=== PATIENT | female | born 1950 | race Caucasian/White ===

== ENCOUNTER 2016-08-07 18:52 | Inpatient (IN) ==
[2016-08-07 19:57] LABS: URINE MICRO REVIEW NEEDED? NO; URINE SOURCE CLEAN CATCH
[2016-08-07 20:01] LABS: BILIRUBIN URINE NEGATIVE (NEGATIVE); BLOOD URINE NEGATIVE (NEGATIVE); COLOR YELLOW; GLUCOSE URINE NEGATIVE (NEGATIVE); LEUKOCYTES URINE SMALL (NEGATIVE); NITRITE URINE NEGATIVE (NEGATIVE); PH URINE 7.5; PROTEIN URINE 70 mg/dL (NEGATIVE); TURBIDITY URINE CLEAR (CLEAR); UROBILINOGEN URINE NORMAL (NORMAL)
[2016-08-07 20:03] LABS: UR EPITHELIAL CELLS >10 /HPF (<10); URINE BACTERIA NEGATIVE /HPF; URINE CULTURE NEEDED? YES; URINE RBC <10 /HPF (<10); URINE WBC <10 /HPF (<10)
[2016-08-07 20:17] LABS: MANUAL DIFF NEEDED? NO
[2016-08-07 20:23] LABS: BASO% 0.1 % (0.0-0.8); EOS# 0.07 X1000 (0.0-0.7); EOS% 0.9 % (0.0-10.0); HEMOGLOBIN 12.4 g/dL (12.0-16.0); IMM GRAN# 0.03 X1000 (0.0-0.04); IMM GRAN% 0.4 % (0.0-0.5); LYMPH# 1.26 X1000 (1.2-3.4); LYMPH% 15.8 % (20.5-51.1); MCH 29.7 PG (27-31); MCHC 33.5 g/dL (33-37); MCV 88.7 FL (81-99); MONO# 0.58 X1000 (0.11-0.59); MONO% 7.3 % (1.7-9.3); MPV 8.8 FL (7.4-10.4); NEUT% 75.5 % (42.2-75.2); PLT 196 X1000 (130-400); RBC 4.17 XMIL (4.2-5.4)
[2016-08-07 20:46] LABS: AGAP 15; ALBUMIN 4.6 g/dL (3.5-5.0); ALKALINE PHOSPHATASE 111 U/L (32-104); AMYLASE 69 U/L (20-200); BUN 5 mg/dL (8-22); CALCIUM 7.7 mg/dL (8.8-10.2); CHLORIDE 93 mmol/L (98-107); COSMO 272; GOT 27 U/L (10-30); GPT 29 U/L (10-36); LIPASE 43 U/L (13-60); POTASSIUM 3.5 mmol/L (3.5-5.1); SODIUM 137 mmol/L (136-145); TCO2 29 mmol/L (25-35); TOTAL BILIRUBIN 0.46 mg/dL (0.20-1.00); TOTAL PROTEIN 7.7 g/dL (6.3-8.3)
[2016-08-07] MEDS ORDERED: MORPHINE IV ONE ×2 (20:58→21:50)
[2016-08-07] MEDS ORDERED: ZOFRAN IV ONE (20:58)
[2016-08-07] MEDS ORDERED: OFIRMEV 1000 MG/ISOTONIC SOLN 1,000 MG/100 ML BOTTLE ONE (21:11)
[2016-08-07] MEDS ORDERED: OFIRMEV 1000 MG/ISOTONIC SOLN 1,000 MG/100 ML BOTTLE IV ONE (21:20)
[2016-08-07] MEDS ORDERED: NS 1,000 ML IV ONE (22:22)
[2016-08-07] MEDS ORDERED: PROTONIX IV ONE (22:49)
[2016-08-07] MEDS ORDERED: PHENERGAN IV ONE (22:49)
[2016-08-07] MEDS ORDERED: SODIUM CHLORIDE 0.9% INJ ONE ×2 (22:49)
[2016-08-08] MEDS ORDERED: TYLENOL PO PRN (00:29)
[2016-08-08] MEDS: NS 1,000 ML IV SCH ×3 (01:33→16:43)
[2016-08-08] MEDS ORDERED: SODIUM CHLORIDE 0.9% INJ PRN (02:04)
[2016-08-08] MEDS: DILAUDID IV PRN ×6 (02:15→22:24)
[2016-08-08 02:34] LABS: INR 1.06; PROTIME 11.2 Seconds (9.2-11.7); PTT 29.2 Seconds (22.0-36.0)
[2016-08-08 02:37] LABS: AMYLASE 61 U/L (20-200); HDL 47 mg/dL (45-65); LDL 57 mg/dL; LIPASE 41 U/L (13-60); TRIGLYCERIDES 204 mg/dL (35-135); VLDL 41 mg/dL
--- NOTE | 2016-08-08 04:59 | HISTORY AND PHYSICAL ---
PRIMARY CARE PROVIDER: Henry Napoles MD DATE AND TIME OF HISTORY AND PHYSICAL: 08/07/2016 at 2200 hours. CHIEF COMPLAINT: Nausea, vomiting and abdominal pain. HISTORY OF PRESENT ILLNESS: Ms. Napoles is a 66-year-old, female who presented to the ER [facility] with complaints of nausea and vomiting as well as abdominal pain, that started approximately 2 weeks ago. The patient states that she initially had nausea, vomiting and diarrhea as well as abdominal pain and was admitted to [facility] for 1 week. She reports that while she was admitted there, that she had a CT scan, though did not undergo an EGD or colonoscopy. She was discharged 2 days ago but was actually seen in the ER yesterday for continued nausea and vomiting, was given some fluids and discharged home again. Dr. Napoles recommended the patient come to [facility] for further evaluation by a possible planer offbearer. The patient states that for the initial first couple of days since her symptoms started, she did have diarrhea, but this has subsided at this time. She reports that she has not had a bowel movement in 4 days, though has not been able to hold down any solid foods for approximately 2 weeks. The patient states everything that she eats comes right back up. She reports that her emesis at this time is a white frothy consistency. She denies any hematochezia, melena or hematemesis. The patient complains of abdominal pain as well as lower back pain. She denies any dysuria or urinary frequency. She denies body aches or chills, though did report that she had a fever yesterday. She also does report feeling dizzy and lightheaded at times as well as feeling fatigued, though she denies any headache, chest pain or shortness of breath. Upon further evaluation in the ER, the patient was found initially to be tachycardic upon arrival with a heart rate of 140, respirations 20, blood pressure 135/95, and oxygen saturation of 96% on room air. She is afebrile at this time. White blood cell count is within normal limits at 7.9. Amylase and lipases were within normal limits as well. The patient does have pain and tenderness noted in epigastric area as well as some periumbilical pain and tenderness as well. We have ordered a CT abdomen and pelvis with contrast and are awaiting those results this time. We will admit the patient for her abdominal pain, nausea, vomiting, as well as fluid volume depletion. REVIEW OF SYSTEMS: A 12-point review of systems was conducted with the patient and all were negative except for pertinent positives mentioned above in the HPI. PAST MEDICAL HISTORY: 1. History of right breast cancer. 2. Hypertension. 3. Bipolar disorder. PAST SURGICAL HISTORY: 1. Hysterectomy. 2. Hernia repair at age 2. 3. Right breast surgery for breast cancer as well as approximately 4 lymph nodes removed as well. SOCIAL HISTORY: Patient is a former smoker. She smoked 2 packs a day for approximately 20 years ago though quit smoking 15 years ago. She denies any alcohol or illicit drug use. FAMILY HISTORY: Positive for alcoholism, drug addiction, diabetes mellitus, heart disease, stroke. Her mother had a history of multiple blood clots and there is a family history of breast cancer as well. ALLERGIES: Patient reports allergies to Aleve, Lyrica, adhesive tape and morphine, though the patient did receive 2 doses of morphine in the ER with no reported adverse reactions. HOME MEDICATIONS: Trazodone 100 mg p.o. at bedtime, Seroquel 300 mg p.o. at bedtime, amlodipine 10 mg p.o. daily, Tylenol with Codeine #4 tablet 1 p.o. q.6 hours p.r.n. for pain, dicyclomine 20 mg p.o. t.i.d., diazepam 10 mg p.o. b.i.d. p.r.n., Flexeril 10 mg p.o. t.i.d. DIAGNOSTIC DATA/LABORATORY RESULTS: White blood cell count 7.9, hemoglobin 12.4 , hematocrit 37, platelet count 196,000. PT 11.2, INR 1.06. PTT 29.2. Sodium 137, potassium 3.5, chloride 93, bicarbonate 29, BUN 5 creatinine 0.8, glucose 124, calcium 7.7, total bilirubin 0.46, AST 27, ALT 29, alkaline phosphatase is 111. Amylase 69, lipase 43. Urinalysis was obtained via clean catch, was positive for protein, small leukocytes, though had greater than 10 epithelial cells. It was negative for glucose, ketones, blood, nitrites or bacteria. We have ordered EKGs, though it is unable for viewing at this time. PENDING DIAGNOSTIC STUDIES: CT of the abdomen and pelvis with contrast, lipid profile and urine culture. PHYSICAL EXAMINATION: VITAL SIGNS: Temperature 98.8 degrees, heart rate 117, respirations 18, blood pressure 152/90, oxygen saturation is 98% on room air. GENERAL: Ms. Napoles is a pleasant 66-year-old female who is resting in the ER stretcher. She was experiencing some abdominal pain upon my evaluation, and appeared to be in some discomfort, though was awake, alert and able to answer all questions appropriately. HEENT: Head is atraumatic, normocephalic. Pupils are equal, round, reactive to light, were 3 mm bilaterally and brisk. Subconjunctivae are pink. Oral mucosa was moist. Oropharynx is clear. NECK: Supple. Trachea midline. No carotid bruits noted upon auscultation bilaterally. No JVD noted. CARDIOVASCULAR: Patient has normal S1, S2. No murmurs, gallops, or rubs appreciated with a slightly tachycardic rate that is regular. PULMONARY: Patient has symmetrical chest expansion bilaterally. Lung sounds were clear to auscultation in bilateral full marquez. ABDOMEN: Soft. Does appear to be slightly distended, though the patient does have a protuberant abdomen noted. Bowel sounds were present in all 4 quadrants. The patient did have tenderness noted upon palpation in the epigastric area as well as a periumbilical. She did have some slight rebound tenderness noted upon palpation. EXTREMITIES: No cyanosis, clubbing, or edema noted. Pulse, motor and sensory were intact in all extremities. Pedal pulses were 3+ bilaterally. Capillary refill is less than 3. INTEGUMENTARY: The patient's skin is pink, warm, dry and intact. NEUROLOGICAL: Patient is alert and oriented to person, place, time, and situation. Cranial nerves 2-12 are grossly intact. ASSESSMENT AND PLAN: 1. Fluid volume depletion. This is likely secondary to the patient's persistent reported nausea and vomiting. We will give her a 1 L normal saline bolus in the ER. Continue her fluids at 150 mL/h. 2. Nausea, vomiting. We have placed p.r.n. orders for Zofran and Phenergan as needed. 3. Abdominal pain. As previously mentioned, we have placed an order for a CT of the abdomen and pelvis with contrast and are awaiting those results at this time. Also, we have placed a consult with Dr. Renee with Gastroenterology, and will await her evaluation and further recommendations as well. 4. Tachycardia. This is likely secondary to the patient's fluid volume depletion. Since being given fluids in the ER, the patient's heart rate has improved. It was initially 140 and has come now down with the last reading of 112. We will continue to follow. As well , the patient has been placed on telemetry for close monitoring. 5. Hypertension. We will continue amlodipine 10 mg p.o. daily. 6. Bipolar. We will continue her Seroquel. 7. Patient will be placed on the medical floor with telemetry. She will have vital signs q.6 hours. We will do strict intake and output. She will be NPO at this time until evaluated by Gastroenterology. DVT prophylaxis was provided with SCDs. GI prophylaxis was provided with Protonix 40 mg IV q.24 hours. We have also placed p.r.n. orders for pain medication for the patient's abdominal pain as well. We will repeat a CBC and BMP in the morning. Further orders and recommendations pending hospital course, diagnostic studies and physician evaluation. Dictated by MAXWELL Garcia for Nigel Hooper MD cc: Nigel Hooper MD MTDD
--- NOTE | 2016-08-08 05:17 | EKG Report ---
Test Performed on : 08/07/2016 10:49:57 PM Test Reason : Tachycardia Blood Pressure : / mmHG Vent. Rate : 121 BPM Atrial Rate : 121 BPM P-R Int : 172 ms QRS Dur : 082 ms QT Int : 350 ms P-R-T Axes : 072 -40 085 degrees QTc Int : 497 ms Sinus tachycardia. Left axis deviation Abnormal ECG No previous ECGs available Unconfirmed Result
[2016-08-08 06:00] LABS: MANUAL DIFF NEEDED? NO
[2016-08-08 06:13] LABS: BASO% 0.5 % (0.0-0.8); IMM GRAN# 0.03 X1000 (0.0-0.04); IMM GRAN% 0.5 % (0.0-0.5)
[2016-08-08 06:40] LABS: AGAP 16; BUN 4 mg/dL (8-22); CHLORIDE 99 mmol/L (98-107); COSMO 278; EOS# 0.17 X1000 (0.0-0.7); EOS% 2.6 % (0.0-10.0); HEMATOCRIT 34.1 % (37.0-47.0); HEMOGLOBIN 11.4 g/dL (12.0-16.0); LYMPH# 1.89 X1000 (1.2-3.4); LYMPH% 28.9 % (20.5-51.1); MAGNESIUM 1.1 mg/dL (1.5-2.7); MCH 30.2 PG (27-31); MCHC 33.4 g/dL (33-37); MCV 90.5 FL (81-99); MONO# 0.57 X1000 (0.11-0.59); MONO% 8.7 % (1.7-9.3); MPV 8.9 FL (7.4-10.4); NEUT% 58.8 % (42.2-75.2); PLT 178 X1000 (130-400); POTASSIUM 3.6 mmol/L (3.5-5.1); RBC 3.77 XMIL (4.2-5.4); SODIUM 141 mmol/L (136-145); TCO2 26 mmol/L (25-35)
[2016-08-08] MEDS ORDERED: CALCIUM GLUCONATE 1 GM in NS 50 ML IV ONE (06:55)
[2016-08-08] MEDS ORDERED: MAGNESIUM SULFATE 1 GM/D5W 1 GM/100 ML IVPB IV ONE (07:07)
[2016-08-08] MEDS: NORVASC PO SCH (09:38)
--- NOTE | 2016-08-08 10:47 | Diag Imaging Result Doc PS360 ---
EXAM: ABDOMEN/PELVIS W/CONTRAST INDICATION: persistent nausea vomiting, weight loss COMPARISON: None. FINDINGS: There is trace scarring versus atelectasis at the right lung base. The spleen is at least mildly prominent measuring up to 15.2 cm in craniocaudal length. There are a few shotty nonspecific borderline prominent periportal lymph nodes. The largest node is on image 35 of series 6 and measures up to 1.9 cm in the long axis and 0.9 cm in the short axis. There is suggestion of subtle thickening of the adrenal glands, more prominent on the left. This is statistically most likely adrenal hyperplasia or underlying adrenal adenomas. The appendix is normal. There are scattered sigmoid colonic diverticula but there is no evidence of diverticulitis. There is no sign of bowel obstruction. There has been a previous hysterectomy. No focal inflammatory changes, free abdominal gas, or free fluid is appreciated. The remainder of the solid viscera of the abdomen and pelvis and the remainder of the GI tract are essentially unremarkable. There is aortoiliac atherosclerotic calcification but there is no evidence of aneurysm. There are degenerative changes involving the spine and there is a T12 mild compression deformity, likely chronic. IMPRESSION: 1.Mildly prominent spleen. 2.A few shotty borderline prominent periportal lymph nodes that are nonspecific. 3.Other incidental/nonacute findings detailed above but no definite acute pathology. Electronically signed by Daniel Orozco 08/08/2016 10:45 AM
--- NOTE | 2016-08-08 11:49 | PROGRESS NOTE ---
DATE: 08/08/2016 SUBJECTIVE: The patient complains of having a lot of abdominal pain. She wants more pain medications she has complaints of having some nausea but no vomiting. The patient has stated that her antinausea medication is helping her greatly. She was able to get the contrast down without any difficulty. OBJECTIVE: Vital signs: Blood pressure is 134/69, pulse of 91, respirations 20, temperature 98.4 degrees, saturation of 98% on 2 L nasal cannula. General appearance: Well developed, well- nourished white female in moderate distress due to pain. HEENT: Anicteric. Clear conjunctivae. Neck: Supple. No JVD. No bruit. Cardiovascular: S1, S2. Normal rate and rhythm. No murmur, rubs, or gallops. Pulmonary: Clear to auscultation bilaterally. GI: Soft, nontender, nondistended. Normoactive bowel sounds musculoskeletal. No clubbing, cyanosis, or edema. LABORATORY: White count 6.54, hemoglobin 11.4, hematocrit of 34.1, platelets of 178,000. Chemistry: Sodium 141, potassium 3.6, chloride 99, bicarb 26, BUN 4, creatinine 0.7, glucose of 104. Calcium 7.0 and magnesium 1.1. ASSESSMENT AND PLAN: This is a 66-year-old white female admitted to the hospital for abdominal discomfort and nausea, unable to eat and drink because of nausea and vomiting. 1. Abdominal discomfort and pain, consistent with gastroenteritis has been going on for several weeks now. Gastroenterology was consulted. We will continue with supportive care with IV fluid and antiemetic medications and pain control. 2. Hypocalcemia. We will recheck pot calcium again tomorrow after we will replete her calcium today. We will also check her parathyroid thyroid hormone. 3. Hypomagnesemia. We will replete her magnesium and her electrolyte abnormality is probably secondary to nausea, vomiting, diarrhea with poor p.o. intake. The CAT scan just showed mild prominent spleen. Otherwise, no acute findings. 4. Hypertension. We will continue Norvasc. 5. Bipolar. We will continue Seroquel. 6. We will continue to follow her culture and lab work.
[2016-08-08] MEDS: PHENERGAN IV PRN (18:26)
[2016-08-08] MEDS: PROTONIX IV SCH (20:16)
[2016-08-08] MEDS: SEROQUEL PO SCH (20:16)
[2016-08-08] MEDS: DESYREL PO SCH (20:16)
[2016-08-09] MEDS: PROTONIX IV SCH ×2 (01:10→18:32)
[2016-08-09] MEDS: PHENERGAN IV PRN ×3 (02:44→14:41)
[2016-08-09] MEDS: DILAUDID IV PRN ×6 (02:44→22:05)
[2016-08-09] MEDS: NS 1,000 ML IV SCH (02:46)
[2016-08-09 07:08] LABS: IRON SATURATION 21 %; TIBC 179 ug/dL; TOTAL IRON 37 ug/dL (49-151); UNBOUND IRON 142 ug/dL (112-346)
[2016-08-09 07:39] LABS: FERRITIN 566 ng/mL (13-150)
[2016-08-09] MEDS: NORVASC PO SCH (09:24)
[2016-08-09 11:54] LABS: MANUAL DIFF NEEDED? NO
[2016-08-09] MEDS ORDERED: NORCO-5 PO PRN (11:56)
[2016-08-09 11:57] LABS: BASO% 0.4 % (0.0-0.8); EOS# 0.15 X1000 (0.0-0.7); EOS% 2.8 % (0.0-10.0); HEMATOCRIT 29.4 % (37.0-47.0); HEMOGLOBIN 9.7 g/dL (12.0-16.0); IMM GRAN# 0.03 X1000 (0.0-0.04); IMM GRAN% 0.6 % (0.0-0.5); LYMPH# 1.07 X1000 (1.2-3.4); LYMPH% 19.8 % (20.5-51.1); MCH 29.8 PG (27-31); MCV 90.5 FL (81-99); MONO% 9.2 % (1.7-9.3); MPV 9.1 FL (7.4-10.4); NEUT% 67.2 % (42.2-75.2); PLT 152 X1000 (130-400); RBC 3.25 XMIL (4.2-5.4)
[2016-08-09] MEDS: ZOFRAN IV PRN ×3 (12:43→21:35)
[2016-08-09 12:52] LABS: AGAP 19; BUN 5 mg/dL (8-22); CHLORIDE 98 mmol/L (98-107); COSMO 274; POTASSIUM 4.2 mmol/L (3.5-5.1); SODIUM 138 mmol/L (136-145); TCO2 21 mmol/L (25-35)
--- NOTE | 2016-08-09 13:42 | PROGRESS NOTE ---
DATE: 08/09/2016 SUBJECTIVE: The patient has myriad complaints, mostly in her nausea and vomiting, unable to eat, and abdominal pain. She wants more pain medication. No fever, no chills overnight. No diarrhea since admissions. OBJECTIVE: Blood pressure 112/47, pulse 103, respiration 18, temperature 98.8 degrees, saturation 100% on 2 L nasal cannula. General Appearance: Well-developed, well-nourished white female in moderate distress due to pain and multiple complaints. HEENT: Anicteric. Clear conjunctivae. Neck supple. No JVD. No bruit. Cardiovascular: S1, S2. Normal rate and rhythm. No murmur, rubs, or gallops. Pulmonary: Clear to auscultation bilaterally. GI soft, nontender, nondistended. Normoactive bowel sounds. Musculoskeletal: No clubbing, cyanosis, or edema. Her lab works has not been reported this morning. She had an abdominal ultrasound this morning and HIDA scan this morning. Her liver function tests have been all within normal limits. ASSESSMENT AND PLAN: A 66-year-old admitted to the hospital for abdominal pain. 1. Abdominal pain, nonspecific. CAT scan is normal. The patient an ultrasound HIDA scan. The report is still pending. We will start the patient on a clear liquid diet since she complained of being hungry. Traffic Circuit Engineer is following. No diarrhea. We will add [place] 5 on top of her Dilaudid to get her pain under control. We will also add Zofran p.r.n. for nausea. 2. History of bipolar disorder. We will continue on Seroquel. 3. Insomnia. Continue trazodone. 4. Deep vein thrombosis prophylaxis. Put the patient on Lovenox. 5. CODE STATUS: The patient is a FULL CODE.
--- NOTE | 2016-08-09 14:27 | Diag Imaging Result Doc PS360 ---
EXAM: US GB < RUQ (LIMITED) INDICATION: n/v, diarrhea, abd pain COMPARISON: None. FINDINGS: No gallstones or sludge is identified. There is mild gallbladder wall thickening measuring up to 4 mm. There is no pericholecystic fluid. The common bile duct is normal in diameter. Sonographic Flood's sign was reported to be positive by the light technician. The liver is grossly unremarkable. Portal venous flow is hepatopedal. The visualized pancreas is unremarkable. The aorta and IVC are grossly unremarkable. The right kidney is grossly unremarkable. IMPRESSION: No gallstones or sludge is identified. However, there is perhaps minimal gallbladder wall thickening and a reported positive sonographic Flood's sign. Electronically signed by Daniel Orozco 08/09/2016 2:25 PM
--- NOTE | 2016-08-09 17:12 | PROGRESS NOTE ---
DATE: 08/09/2016 SUBJECTIVE: The patient states that she is feeling better today. She continues to have nausea and right upper quadrant/epigastric pain. She remains afraid to eat and has requested additional pain medications for her abdominal pain. On abdominal ultrasound, she was found to have a thickened gallbladder with a positive sonographic Flood sign. Her clinical history and ultrasound findings are consistent with cholecystitis. She is anxious to confirm the diagnosis. PHYSICAL EXAM: Vital signs: On exam her blood pressure is 112/70, pulse of 113 , respiration 18, temperature of 97.8. Abdominal Exam: Was deferred. She pressed on her abdomen during our conversation and noted pain in the epigastrium and right upper quadrant. Her abdomen is soft. OBJECTIVE DATA: Reveals a hemoglobin of 9.7 with hematocrit of 29.4 and a white count of 5.41. She has 152,000 platelets. Her ionized calcium is 1.03. Sodium 138, potassium 4.2, chloride 93, CO2 21, BUN 5, creatinine 0.7 with a glucose of 110. Calcium is 8.0. Her iron is 37 with ferritin of 566. Her B12 is 1156 with a folic acid of 8.2. IMPRESSION: 1. Nausea with vomiting. 2. Diarrhea. 3. Abdominal pain. 4. Hypocalcemia. 5. Folic acid deficiency. 6. Elevated alkaline phosphatase. 7. Iron-deficiency anemia. 8. Ultrasound with a positive sonographic Flood sign. RECOMMENDATION: 1. The nausea and vomiting persists and her ultrasound suggests cholecystitis. Therefore, I will obtain a HIDA scan on Thursday to confirm the diagnosis. Pending the results of that study, she will need a surgical consult. I will consider Bentyl if the study is negative. 2. The patient has a progressive anemia. I will plan to perform an EGD on Thursday in light of her drop in her hemoglobin. 3. Begin folic acid 1 mg p.o. daily. 4. I would advance her diet to a clear liquid diet as tolerated. 5. The patient reported diarrhea upon admission. However, she has had no bowel movement since admission. Therefore, I recommend administering a Dulcolax suppository as she appears to have opioid induced constipation. In the past, she reports alternating constipation and loose stools at home. She may have underlying IBS. I will consider treatment pending the HIDA scan results. 6. I will defer to the primary team for correction of her hypocalcemia based on serum calcium levels and ionized calcium. 7. Additional recommendations to follow based on her clinical course. cc: MD Dr. Graham Holden [place] MTDD
--- NOTE | 2016-08-09 17:57 | CONSULTATION ---
DATE OF CONSULTATION: 08/09/2016 PRIMARY CARE PROVIDER: Dr. Henry Napoles M.D. REFERRING PHYSICIAN: Dr. Nigel Stark M.D. INDICATION FOR CONSULTATION: 1. Nausea with vomiting. 2. Diarrhea. 3. Abdominal pain. HISTORY OF PRESENT ILLNESS: The patient is a 66-year-old, white female, who presented to the emergency room. She reports a 3-week history of nausea with vomiting, diarrhea , and abdominal pain. She spent 1 week in [facility] with the same concerns. She said multiple tests were done but no cause was found. She was discharged to home. At home, she continued to have nausea with vomiting, abdominal pain, and diarrhea. She was advised to present to [facility] Room for evaluation by a tile layer helper. In the emergency room, she was found to be tachycardic and orthostatic. She was noted to have epigastric and right upper quadrant tenderness on exam. Her CT scan was remarkable for prominent spleen, periportal lymph nodes that were slightly enlarged but no other acute findings. However, she had persistent nausea and vomiting in the emergency room and was admitted for further management. Of note, the patient states that she underwent a colonoscopy approximately 10 years ago and has a history of colon polyps. She has not had an endoscopic evaluation with this recent episode of nausea with vomiting, abdominal pain, and diarrhea. PAST MEDICAL HISTORY: 1. Right breast cancer status post resection and lymph node removal. 2. Hypertension. 3. Bipolar disorder. 4. Colon polyps. 5. Central morbid obesity. 6. Former smoker. She previously smoked 2 packs per day for 15 years but stopped smoking 20 years ago. PAST SURGICAL HISTORY: 1. Hysterectomy. 2. Hernia repair at [age] years of age. 3. Right breast surgery for breast cancer and lymph node dissection. SOCIAL HISTORY: The patient smoked 2 packs per day for 15 years. She states that she stopped smoking 20 years ago. However, she reports to a colleague that she smoked 2 packs per day for 20 years and stopped smoking 15 years ago. She previously drank beer on a casual basis. She reports minimal to no alcohol intake for over 10 years. FAMILY HISTORY: Positive for alcoholism, drug addiction, diabetes, heart disease, and stroke. Her mother had a history of multiple blood clots and there are family members who have had breast cancer. She denies a history of colon cancer or colon polyps. MEDICATION ALLERGIES: 1. Aleve. 2. Lyrica. 3. Adhesive tape. 4. Morphine. HOME MEDICATIONS: 1. Trazodone. 2. Seroquel. 3. Amlodipine. 4. Tylenol with codeine #4. 5. Dicyclomine. 6. Diazepam. 7. Flexeril. REVIEW OF SYSTEMS: Remarkable for nausea and vomiting. She describes her emesis as clear and watery. She has avoided solid food for over 3 weeks. She states that when she is NPO, she has minimal pain. She notes the pain begins within 10 minutes of ingesting solid food. She has felt lightheaded and dizzy due to dehydration. She complains of abdominal pain and is requesting pain medications. On exam, she is in no acute distress. Her blood pressure is 137/80, pulse of 107, respiration 20, temperature of 97.9 degrees.HEENT: Negative for jaundice. Her conjunctivae are pink. Her oropharyngeal mucosal membrane is moist. Pulmonary: Lungs are clear to auscultation with normal expiratory effort. Cardiovascular: Reveals a resting tachycardia with a regular rhythm. There are no murmurs, gallops or rubs. Abdominal Exam: Reveals hypoactive bowel sounds. The abdomen is soft, but tender in the epigastrium, right upper quadrant and periumbilical area. There is no rebound or guarding. There is central adiposity. Extremities: Bilaterally are negative for cyanosis, clubbing, or edema. OBJECTIVE DATA: Reveals a hemoglobin of 11.4 with hematocrit of 34.1, and a white count of 6.54. She has 178,000 platelets. Sodium is 141, potassium 3.6, chloride 99, CO2 26, BUN 4, creatinine 0.7 with a glucose of 104. Calcium is 7.0, magnesium 1.1. Albumin is 3.9. IMPRESSION: 1. Nausea with vomiting. 2. Diarrhea. 3. Abdominal pain in the epigastrium, right upper quadrant and periumbilical area. 4. Hypomagnesemia. 5. Anemia. 6. Volume depletion. 7. Central morbid obesity. RECOMMENDATION: 1. Because of the nausea with vomiting and episodic pain in the right upper quadrant, I recommend an abdominal ultrasound and a HIDA scan. Her symptoms sound consistent with biliary colic. 2. Depending on the results of her ultrasound and HIDA scan, I will tentatively place her on the schedule for an EGD on Thursday. 3. She was noted to have hypomagnesemia and hypocalcemia. These will need to be corrected. I will defer to the primary team for management of the fluid and electrolytes. 4. The patient is currently receiving Protonix 40 mg IV q.24 hours. In light of her nausea with vomiting, I will increase the dose to Protonix 40 mg IV q.12 hours. 5. Continue Zofran for treatment of her nausea and vomiting. 6. Additional recommendations to follow based on the results her abdominal ultrasound and HIDA scan. I did discuss with the patient that she may require a cholecystectomy depending on the results of her evaluation including the HIDA scan. 7. If her hemoglobin continues to drop this admission, I would recommend endoscopic evaluation prior to any surgical intervention. 8. Additional recommendations to follow based on her clinic progress and test results. cc: MD Henry Turcios MD Cesar Garcia-Rodriguez, MD MTDD
[2016-08-09] MEDS ORDERED: DULCOLAX PR ONE (21:00)
[2016-08-09] MEDS: FOLIC ACID PO SCH (21:35)
[2016-08-09] MEDS: DESYREL PO SCH (21:35)
[2016-08-09] MEDS: SEROQUEL PO SCH (21:35)
[2016-08-10] MEDS: SODIUM CHLORIDE 0.9% INJ SCH ×2 (03:07→15:31)
[2016-08-10] MEDS: PROTONIX IV SCH ×2 (03:08→15:31)
[2016-08-10] MEDS: DILAUDID IV PRN ×6 (03:10→23:42)
[2016-08-10 06:10] LABS: MANUAL DIFF NEEDED? NO
[2016-08-10 06:14] LABS: BASO% 0.2 % (0.0-0.8); EOS# 0.12 X1000 (0.0-0.7); EOS% 2.4 % (0.0-10.0); HEMATOCRIT 28.4 % (37.0-47.0); HEMOGLOBIN 9.4 g/dL (12.0-16.0); IMM GRAN# 0.02 X1000 (0.0-0.04); IMM GRAN% 0.4 % (0.0-0.5); LYMPH# 1.19 X1000 (1.2-3.4); MCH 29.5 PG (27-31); MCHC 33.1 g/dL (33-37); MONO# 0.32 X1000 (0.11-0.59); MONO% 6.5 % (1.7-9.3); MPV 8.4 FL (7.4-10.4); NEUT% 66.5 % (42.2-75.2); PLT 155 X1000 (130-400); RBC 3.19 XMIL (4.2-5.4)
[2016-08-10 07:14] LABS: AGAP 15; BUN 5 mg/dL (8-22); CALCIUM 8.3 mg/dL (8.8-10.2); CHLORIDE 98 mmol/L (98-107); COSMO 276; POTASSIUM 3.5 mmol/L (3.5-5.1); SODIUM 139 mmol/L (136-145); TCO2 26 mmol/L (25-35)
--- NOTE | 2016-08-10 09:50 | PROGRESS NOTE ---
DATE: 08/10/2016 SUBJECTIVE: The patient is feeling better. Her pain is much better controlled since we increased her Dilaudid. The patient is still complaining of having some muscle spasm in her lower back on the right side. She did not want to move because it hurts when she moves. PHYSICAL EXAMINATION: Vital Signs: Blood pressure 121/59, pulse of 100, respirations 20, temperature of 99.1 degrees, saturation is 100% on 2 L nasal cannula. General Appearance: Morbidly obese, white female in no acute distress. HEENT: Anicteric sclerae. Clear conjunctivae. Neck: Supple. No JVD. No bruit. Cardiovascular: S1 and S2. Normal rate and rhythm. No murmur, rubs, or gallops. Pulmonary: Clear to auscultation bilaterally. GI: Soft, nontender, nondistended. Normoactive bowel sounds. Musculoskeletal: No clubbing, cyanosis, or edema. Back: She has lower back pain to palpation along the muscle. LABORATORY: White count 4.96, hemoglobin 9.4, hematocrit 28.4, platelets of 155,000. Sodium 139, potassium 3.5, chloride 98, bicarb 26, BUN 5, creatinine 0.7, glucose of 120. RADIOLOGY: The patient had the abdominal ultrasound which was suggestive of cholecystitis according to GI. ASSESSMENT AND PLAN: This is a 66-year-old, white female admitted to the hospital for abdominal pain, nausea, and vomiting. Nausea and vomiting have resolved. Diarrhea has resolved. The patient complained of pain in her lower back. 1. Lower back pain. It may be cholecystitis. We will start the patient on Zosyn today. We will check a blood culture. Start the patient on Flexeril for muscle spasm. We will consult physical therapy to work with the patient. Keep the patient on Dilaudid for now. 2. Hypertension. We will continue Norvasc. We may need to add a beta juan miguel if her heart rates start going up. 3. Bipolar disorder. We will continue Seroquel. 4. We will wait for the HIDA scan. Gastroenterology is following. Start the patient on Lovenox. 5. Code status. Patient is a full code.
[2016-08-10] MEDS: ZOSYN 3.375 GM/NS 3.375 GM/50 ML IVPB IV SCH ×3 (09:57→20:35)
[2016-08-10] MEDS: NORVASC PO SCH (09:57)
[2016-08-10] MEDS: FOLIC ACID PO SCH (09:57)
[2016-08-10] MEDS: ZOFRAN IV PRN (09:58)
[2016-08-10] MEDS: FLEXERIL PO SCH ×2 (13:06→20:37)
--- NOTE | 2016-08-10 17:22 | PROGRESS NOTE ---
DATE: 08/10/2016 HISTORY OF PRESENT ILLNESS: The patient states that she is feeling better today. She continues to have nausea and right upper quadrant pain. The vomiting has resolved. She denies diarrhea stating that she had a solid bowel movement after receiving the suppository was administered last night. However, her stool studies show copious amounts of fecal white blood cells in the stool. Her C. difficile toxin was negative. She notes that the Dilaudid is controlling her pain. She awaits a HIDA scan in the morning. PHYSICAL EXAMINATION: Vital Signs: Her blood pressure is 143/80, pulse 104, respiration 20, temperature of 98.2 degrees. Lungs: Clear to auscultation with normal respiratory effort. Cardiovascular: Reveals a tachycardia with a regular rhythm. Abdominal Exam: Reveals normoactive bowel sounds. The abdomen is soft with moderate epigastric to right upper quadrant tenderness but no rebound or guarding. There is central adiposity. OBJECTIVE DATA: Reveals a hemoglobin 9.4 with hematocrit of 28.4 and a white count of 4.96. She has 155,000 platelets. Sodium is 139, potassium 3.5, chloride 98, CO2 26, BUN 5 , creatinine 0.7 with a glucose of 122 and a calcium of 8.3. RECOMMENDATION: 1. Patient is scheduled to have a HIDA scan in the morning. She is adamant if the HIDA scan confirms biliary disease she would like to have her gallbladder removed this admission. 2. I have placed her tentatively on the schedule for an EGD on Thursday to further evaluate the nausea and to rule out peptic ulcer disease prior to a possible cholecystectomy. 3. As an outpatient, she should have a repeat colonoscopy. She reports a normal colon 2-3 years ago but her stool currently contains white blood cells. I would continue supportive care at this time. cc: Karlos Vaughan M.D. MELANIE
[2016-08-10] MEDS: DESYREL PO SCH (20:35)
[2016-08-10] MEDS: SEROQUEL PO SCH (20:36)
[2016-08-11] MEDS: ZOSYN 3.375 GM/NS 3.375 GM/50 ML IVPB IV SCH ×4 (03:59→21:08)
[2016-08-11] MEDS: PROTONIX IV SCH ×2 (03:59→16:56)
[2016-08-11 06:19] LABS: MANUAL DIFF NEEDED? NO
[2016-08-11 08:37] LABS: AGAP 14; BUN 5 mg/dL (8-22); CALCIUM 8.3 mg/dL (8.8-10.2); CHLORIDE 100 mmol/L (98-107); COSMO 280; POTASSIUM 3.6 mmol/L (3.5-5.1); SODIUM 141 mmol/L (136-145); TCO2 27 mmol/L (25-35)
[2016-08-11 08:38] LABS: BASO% 0.5 % (0.0-0.8); EOS# 0.13 X1000 (0.0-0.7); EOS% 3.4 % (0.0-10.0); HEMATOCRIT 26.9 % (37.0-47.0); HEMOGLOBIN 8.8 g/dL (12.0-16.0); IMM GRAN# 0.02 X1000 (0.0-0.04); IMM GRAN% 0.5 % (0.0-0.5); LYMPH% 28.8 % (20.5-51.1); MCH 28.9 PG (27-31); MCHC 32.7 g/dL (33-37); MCV 88.5 FL (81-99); MONO# 0.29 X1000 (0.11-0.59); MONO% 7.6 % (1.7-9.3); MPV 8.6 FL (7.4-10.4); NEUT% 59.2 % (42.2-75.2); PLT 171 X1000 (130-400); RBC 3.04 XMIL (4.2-5.4)
[2016-08-11] MEDS ORDERED: LOVENOX SUBQ SCH (09:00)
--- NOTE | 2016-08-11 12:15 | PROGRESS NOTE ---
DATE: 08/11/2016 SUBJECTIVE: Patient reports this is common mild pain in the right upper quadrant. Denies any fever or chills. OBJECTIVE: Vital Signs: Temperature 98 degrees, heart rate 97, respiratory rate 16, blood pressure 155/70. O2 saturation 100% on 2 L nasal cannula. General Examination: This is a 66- year-old female lying in bed, in no acute distress. HEENT: Head is normocephalic, atraumatic. Anicteric sclerae and pale conjunctivae. Mucous membranes moist. Neck: Supple. No JVD noted. No carotid bruits. No lymphadenopathy. No thyromegaly. Cardiovascular: S1, S2 heard. No murmurs, gallops, or rubs. Regular rate and rhythm. Respiratory: Clear bilaterally to auscultation. No work of breathing or using accessory muscles. Abdomen: Soft, nontender to palpation. Bowel sounds present. No organomegaly. Mild tenderness to palpation in the right upper quadrant. No signs of peritoneal irritation. Extremities: No clubbing, cyanosis, or edema. Peripheral pulses present in both legs. Neurological: Patient alert and oriented x3. Moves 4 extremities. LABORATORY DATA: White cell count 3.82, hemoglobin 10.8, hematocrit 36.9, platelets 171,000. BMP is unremarkable except glucose 128. ASSESSMENT/PLAN: 1. Lower back pain. We are suspecting cholecystitis so that is why the HIDA scan is scheduled for today. We will see what it shows. In the meantime, patient has been started on Zosyn. Also, patient will be continued on Flexeril. 2. Hypertension. Patient has been started on amlodipine and the blood pressure has been in the range of 150. So currently she is receiving amlodipine 10 and also Zosyn. We will continue with the same management. 3. Bipolar disorder. We will continue with Seroquel. 4. Right upper quadrant pain. HIDA scan will be done today and also endoscopy will be done tomorrow morning. 5. Code status: Full code. cc: Nigel Hooper MD
[2016-08-11] MEDS: ZOFRAN IV PRN ×2 (12:41→16:39)
[2016-08-11] MEDS: FLEXERIL PO SCH ×3 (16:01→21:09)
--- NOTE | 2016-08-11 16:32 | Diag Imaging Result Doc PS360 ---
EXAM: HIDA SCAN W/ EJECTION FRACTION HISTORY: n/v, abd pain, diarrhea TECHNIQUE: 4.6 mCi technetium Choletec administered COMPARISON: None. FINDINGS: There is prompt uptake of radiopharmaceutical within the liver. Normal emptying into the small bowel. Normal filling of the gallbladder. Ensure was given to determine the gallbladder ejection fraction. This is calculated to be 83% at 60 minutes. IMPRESSION: Normal HIDA scan with a normal gallbladder ejection fraction. Electronically signed by Saad Estrada 08/11/2016 4:29 PM
[2016-08-11] MEDS: NORVASC PO SCH (16:38)
[2016-08-11] MEDS: FOLIC ACID PO SCH (16:38)
[2016-08-11] MEDS: DILAUDID IV PRN ×2 (16:39→21:09)
[2016-08-11] MEDS: SODIUM CHLORIDE 0.9% INJ SCH (16:55)
[2016-08-11] MEDS: SEROQUEL PO SCH (21:07)
[2016-08-11] MEDS: DESYREL PO SCH (21:08)
[2016-08-12] MEDS: DILAUDID IV PRN ×6 (01:29→21:58)
[2016-08-12] MEDS: PROTONIX IV SCH ×2 (03:55→14:58)
[2016-08-12] MEDS: SODIUM CHLORIDE 0.9% INJ SCH ×2 (03:55→14:59)
[2016-08-12] MEDS: ZOSYN 3.375 GM/NS 3.375 GM/50 ML IVPB IV SCH ×4 (03:55→21:14)
--- NOTE | 2016-08-12 04:19 | PROGRESS NOTE ---
DATE: 08/11/2016 SUBJECTIVE: The patient underwent a HIDA scan today for further evaluation of her right upper quadrant pain. She reports severe right upper quadrant pain during the procedure that reproduced the pain that she has had over the last several months. She states that she is ready to have her gallbladder out. However, we have been asked to perform an EGD and colonoscopy in the morning. Please note that the patient refuses a colonoscopy, stating that she would rather schedule one as an outpatient with Dr. Hartmann. She is agreeable to undergoing an EGD in the morning. On exam,her blood pressure is 155/67, pulse 107, respirations 16, temperature of 98.0. On abdominal exam, she continues to have right upper quadrant pain. There are normal bowel sounds with no rebound or guarding. OBJECTIVE DATA: Remarkable for hemoglobin of 8.8, with hematocrit of 26.9, and a white count of 3.82. She has 171,000 platelets. Sodium is 141, potassium 3.6, chloride 100, CO2 27, BUN 5, creatinine 0.7, with a glucose of 128. Calcium is 8.3, with a magnesium of 1.1. IMPRESSION: 1. Right upper quadrant pain. 2. Nausea, with vomiting. 3. Diarrhea at the time of admission, now resolved. RECOMMENDATION: 1. We will perform an EGD in the morning, as previously recommended. 2. It should be noted that the patient's HIDA scan was normal, with a normal ejection fraction. This suggests that her abdominal pain is not due to her gallbladder. We will provide additional recommendations in the morning. However, it should be noted that the patient is somewhat anxious, and perhaps this recommends an irritable bowel syndrome component. Unfortunately, her age precludes the use of Levsin and Bentyl. She was angry after learning her tests was normal and continues to request pain medications with each bedside visit. 3. Consider a trial of peppermint oil as an outpatient or Ibguard as an outpatient to help with the abdominal spasms, once we have cleared her GI tract with an EGD. The patient had possible enterocolitis based on stool studies. I will complete a 10-day course of antibiotics. It is recommended that she undergo an outpatient colonoscopy by Dr. Hartmann in the future. cc: MD Nigel Turcios MD Chad McElroy, MD MTDD
[2016-08-12] MEDS: FLEXERIL PO SCH ×3 (04:51→21:14)
[2016-08-12] MEDS: ZOFRAN IV PRN ×3 (06:09→21:58)
[2016-08-12] MEDS: FOLIC ACID PO SCH (09:47)
[2016-08-12] MEDS: NORVASC PO SCH (09:47)
--- NOTE | 2016-08-12 12:53 | PROGRESS NOTE ---
DATE: 08/12/2016 SUBJECTIVE: Patient reports feeling fine. Definitely no pain in the right upper quadrant today. No fever or chills. No vomiting or having diarrhea anymore. OBJECTIVE: Vital Signs: Temperature 98.1 degrees, heart rate 86, respiratory rate 14, blood pressure 129/50, O2 saturation 98% 3 L nasal cannula. General Examination: This is a 58-year-old female lying in bed, in no acute distress. HEENT: Head is normocephalic, atraumatic. Anicteric sclerae and pale conjunctivae. Mucous membranes moist. Neck: Supple. No JVD noted. No carotid bruits. No lymphadenopathy. No thyromegaly. Cardiovascular: S1, S2 heard. No murmurs, gallops, or rubs. Regular rate and rhythm. Respiratory: Clear bilaterally to auscultation. No work of breathing or using accessory muscles. Abdomen: Soft, nontender to palpation. Bowel sounds present. No organomegaly. Extremities: No clubbing, cyanosis, or edema. Peripheral pulses present in both legs. Neurological: Patient alert oriented x3. Moves 4 extremities. LABORATORY DATA: None available from today. ASSESSMENT AND PLAN: 1. Abdominal pain/intractable nausea, vomiting. We were suspecting cholecystitis. So HIDA scan was ordered, but returned normal. At this time, according to Gastroenterology plans, patient is going to have endoscopy tomorrow and if that exam returns normal, we may potentially discharge this patient. 2. Hypertension. 3. The blood pressure is between 120 and 140, so we will continue with the same management. 4. Bipolar disorder. We will continue with Seroquel. 5. Code status. Full code. cc: Nigel Hooper MD
[2016-08-12] MEDS ORDERED: DIPRIVAN 1% ONE (13:28)
[2016-08-12] MEDS ORDERED: LR 500 ML ONE (14:38)
[2016-08-12] MEDS ORDERED: XYLOCAINE-MPF 2% ONE (14:38)
[2016-08-12] MEDS: CARAFATE LIQUID PO SCH ×2 (15:10→21:14)
[2016-08-12] MEDS: SEROQUEL PO SCH (21:14)
[2016-08-12] MEDS: DESYREL PO SCH (21:15)
[2016-08-12] MEDS ORDERED: MYLICON PO PRN (21:17)
--- NOTE | 2016-08-12 22:05 | OPERATIVE NOTE ---
PROCEDURE DATE: 08/12/2016 REFERRING PHYSICIAN: Nigel Lyon M.D. PRIMARY CARE PROVIDER: Henry Ayala M.D. INDICATION FOR PROCEDURE: 1. Nausea with vomiting. 2. Right upper quadrant pain. PROCEDURE PERFORMED: Esophagogastroduodenoscopy with biopsy. CONSENT: Informed consent was obtained from the patient prior to the procedure. The risks, benefits, and alternatives were discussed. MEDICATION: The patient received monitored anesthesia care. PERFORMING PHYSICIAN: Paige Renee M.D. ASSISTANTS: 1. [facility] 2. Jessica Minaya RN. 3. Beau Devlin CRNA. 4. Mika Stanton M.D. (anesthesia). COMPLICATIONS: None. ESTIMATED BLOOD LOSS: Less than 1 mL. SPECIMENS REMOVED: 1. Duodenal biopsy. 2. Gastric biopsy. FINDINGS: After sedation was achieved, the upper endoscope was inserted to the 2nd portion of the duodenum. The hypopharynx appeared endoscopically normal. The tubular esophagus was normal to the distal esophagus. At the GE junction, there was a partially obstructive Schatzki ring. We are able to traverse the ring without difficulty. The GE junction was measured at 38 cm from the incisors. There was a large hiatal hernia that spanned from 38-45 cm. In the gastric lumen, there was greater than 200 mL of retained bilious secretions that were evacuated. After evacuation, the mucosa appeared erythematous with foveolar hyperplasia and evidence of erosive gastritis with scattered erosions in the antrum, fundus, and body. The pylorus was inflamed. During the procedure, there was active bile reflux with more than 100 mL of fluid refluxing through the pylorus into the gastric lumen after evacuation of the original 200 mL of fluid. There was duodenitis in the 1st and 2nd portion of the duodenum. After the exam was complete, biopsies were taken from the gastric and duodenal mucosa. It should be noted that there were no esophageal or gastric varices. There was no evidence of Busch's esophagus. IMPRESSION: 1. Schatzki ring. 2. Hiatal hernia. 3. Retained gastric secretions. 4. Erosive gastritis. 5. Active bile reflux. 6. Duodenitis. RECOMMENDATION: 1. Await biopsy results. 2. Continue Protonix 40 mg IV q.12 hours while she is an inpatient. I would transition to Prilosec 40 mg daily at home. 3. Begin Carafate 1 g p.o. 4 times a day for 12 weeks. 4. Please obtain a gastric emptying study in the morning. 5. The patient is currently receiving 10 days of antibiotics for possible colitis. I would complete the 10 day course. 6. Exam today does not fully explain her abdominal pain and I recommend a colonoscopy. The patient has stated that she would like to have Dr. Hartmann in [place] perform her colonoscopy. 7. From a GI standpoint, she will be stable for discharge to home following her gastric emptying study. 8. Will have the patient follow up with Dr. Hartmann and Dr. Ayala. She plans long-term care in [place]. cc: Henry Ayala MD [facility]
[2016-08-13] MEDS: CARAFATE LIQUID PO SCH ×2 (02:24→08:06)
[2016-08-13] MEDS: PROTONIX IV SCH ×2 (04:52→06:13)
[2016-08-13] MEDS: ZOFRAN IV PRN (04:52)
[2016-08-13] MEDS: ZOSYN 3.375 GM/NS 3.375 GM/50 ML IVPB IV SCH ×3 (04:52→12:22)
[2016-08-13] MEDS: SODIUM CHLORIDE 0.9% INJ SCH (04:52)
[2016-08-13] MEDS: DILAUDID IV PRN ×2 (04:53→09:30)
[2016-08-13] MEDS: FLEXERIL PO SCH ×2 (04:59→08:06)
[2016-08-13 05:53] LABS: MANUAL DIFF NEEDED? NO
[2016-08-13 06:05] LABS: BASO% 0.6 % (0.0-0.8); EOS# 0.12 X1000 (0.0-0.7); EOS% 3.5 % (0.0-10.0); HEMOGLOBIN 9.7 g/dL (12.0-16.0); IMM GRAN# 0.02 X1000 (0.0-0.04); IMM GRAN% 0.6 % (0.0-0.5); LYMPH# 1.01 X1000 (1.2-3.4); LYMPH% 29.4 % (20.5-51.1); MCH 29.6 PG (27-31); MCHC 33.4 g/dL (33-37); MCV 88.4 FL (81-99); MONO% 5.8 % (1.7-9.3); MPV 8.3 FL (7.4-10.4); NEUT% 60.1 % (42.2-75.2); PLT 166 X1000 (130-400); RBC 3.28 XMIL (4.2-5.4)
[2016-08-13 06:24] LABS: AGAP 14; BUN 7 mg/dL (8-22); CHLORIDE 98 mmol/L (98-107); COSMO 283; POTASSIUM 3.5 mmol/L (3.5-5.1); SODIUM 142 mmol/L (136-145); TCO2 30 mmol/L (25-35)
[2016-08-13 07:25] VITALS: BP 141/72
[2016-08-13] MEDS: FOLIC ACID PO SCH ×2 (08:06→08:07)
[2016-08-13] MEDS: NORVASC PO SCH (08:07)
--- NOTE | 2016-08-13 12:17 | DISCHARGE SUMMARY ---
ADMISSION DATE: 08/07/2016 DISCHARGE DATE: 08/13/2016 DISCHARGE DIAGNOSES: 1. Fluid volume depletion, resolved. 2. Intractable nausea and vomiting, resolved. 3. Hypertension. 4. Bipolar disorder. 5. Possible gastroparesis. 6. Erosive gastritis and duodenitis. CONSULTATIONS: Dr. Paige Renee from Gastroenterology. PROCEDURES: CT of abdomen and pelvis showed mildly prominent spleen, a few shoddy, borderline prominent periportal lymph nodes that are nonspecific. HIDA scan showed normal HIDA scan with normal gallbladder ejection fraction. Abdominal ultrasound showed no gallstones or sludge identified. Positive sonographic Flood's sign. Upper endoscopy showed Schatzki ring, hiatal hernia with retaining gastric secretions, erosive gastritis, active bile reflux and duodenitis. HOSPITAL COURSE: This is a 66-year-old female with past medical history of right breast cancer, hypertension, and bipolar disorder, who basically presented to the emergency department complaining of persistent nausea and vomiting for about 2 weeks. Patient reported that she was admitted to [facility] for a week and she was discharged, even when she was still having nausea and vomiting. Because she was not able to tolerate anything, she decided to present to the emergency department. Here, she was found to be dehydrated and, for further GI workup, she was admitted to the hospital. We repeated the CT scan of the abdomen with results as above. Also, because of abdominal pain and positive radiographic Flood sign, we decided to do a HIDA scan, which basically showed normal function of the gallbladder. The patient also was feeling better, with no nausea, vomiting, or diarrhea anymore, so patient is being discharged in stable condition. The patient also was offered to get a colonoscopy, but she prefers to have Dr. Hartmann from [facility] to perform that procedure. As mentioned before, the patient is being discharged in stable condition. DISCHARGE PHYSICAL EXAMINATION: Vital Signs: Temperature 97.8 degrees, heart rate 93, respiratory rate 14, blood pressure 141/72, and O2 saturation 98% on room air. General: This is a 66-year-old female, looking older for her age, lying in bed in no acute distress. HEENT: Head is normocephalic and atraumatic. Anicteric sclerae and pale conjunctivae. Mucous membranes moist. Neck: Supple. No JVD noted. No carotid bruits. No lymphadenopathy. No thyromegaly. Cardiovascular: S1 and S2 heard. No murmurs, gallops, or rubs. Regular rate and rhythm. Respiratory: Clear bilaterally to auscultation. No work of breathing or using accessory muscles. Abdomen: Soft, nontender to palpation. Bowel sounds present. No organomegaly. Extremities: No clubbing, cyanosis, or edema. Peripheral pulses present in both legs. Neurologic: Patient is alert and oriented x3. Able to move her extremities. Cranial nerves 2-12 are grossly normal. DISCHARGE DISPOSITION: To home with home health, which, according to the patient, the service has been already set up. FOLLOWUP: Follow up with Dr. Hartmann, GI doctor at [facility], who she is going to see. It is important to remark that upper endoscopy also shows possible gastroparesis with some moderate fluids, but the patient prefers to have a gastric emptying study done by Dr. Hartmann. LIST OF MEDICATIONS: 1. Ciprofloxacin 500 mg 1 tablet p.o. b.i.d. for 6 days. 2. [place] 5 mg 1 tablet p.o. every 4 hours as needed for pain. 3. Pantoprazole 40 mg 1 tablet p.o. daily. 4. Sucralfate 1 g every 6 hours. 5. Zolpidem 5 mg 1 tablet p.o. at bedtime. 6. Metronidazole 500 mg 2 times per day. 7. Seroquel 300 mg p.o. at bedtime. 8. Dicyclomine 20 mg 3 times per day. 9. Diazepam 10 mg 1 tablet p.o. b.i.d. 10. Amlodipine 10 mg 1 tablet p.o. daily. 11. Cyclobenzaprine 1 tablet p.o. daily. cc: MD Nigel Turcios MD
--- NOTE | 2016-09-04 06:34 | PROVIDER DOCUMENTATION ---
This chart was entered by Fouzia Stephenson Scribe, acting as scribe for Anton Flores MD. HPI-Abdominal Pain/GI Problem - General Chief Complaint: Nausea/Vomiting Stated Complaint: N/V Time Seen by Provider: 08/07/16 20:18 Source: patient Allergies/Adverse Reactions: Patient Allergies Allergy/AdvReac Type Severity Reaction Status Date / Time naproxen [From Aleve] Allergy ANAPHYLAXIS Verified 08/07/16 19:18 morphine AdvReac Unknown Verified 08/07/16 19:18 pregabalin [From Lyrica] AdvReac Unknown Verified 08/07/16 19:18 TAPE AdvReac RASH Uncoded 08/07/16 19:18 Home Medications: Home Medication List Medication Instructions Recorded Confirmed Last Taken Type Amlodipine Besylate 10 mg PO DAILY 08/07/16 08/07/16 Unknown History Diazepam 10 mg PO BID 08/07/16 08/07/16 Unknown History Dicyclomine HCl 20 mg PO TID 08/07/16 08/07/16 Unknown History Quetiapine Fumarate 300 mg PO HS 08/07/16 08/07/16 Unknown History Ciprofloxacin HCl 500 mg PO BID #12 tablet 08/13/16 Unknown Rx Cyclobenzaprine [Flexeril] 5 mg PO BID PRN PRN #30 tablet 08/13/16 Unknown Rx Hydrocodone/APAP 5 mg/325 mg 1 each PO Q4H PRN PRN #30 tablet 08/13/16 Unknown Rx [[place]-5] Metronidazole [Flagyl] 500 mg PO TID #18 tablet 08/13/16 Unknown Rx Pantoprazole [Protonix] 40 mg PO DAILY@0700 #90 tablet 08/13/16 Unknown Rx Sucralfate [Carafate Liquid] 1 gm PO Q6HR #120 udc 08/13/16 Unknown Rx Zolpidem [Ambien] 5 mg PO QHS #30 tablet 08/13/16 Unknown Rx - History of Present Illness-ABD Nature of Presenting Problems: 66 Y/O F presents to ED with ABD pain. Pt states that she was admitted into [facility] for 2 weeks ago and was there for 1 week and discharged 2 days ago and then returned the day after her discharged for the same symptoms, was given fluids and then sent home with continued V/D. PT C/o of N/V/D 1 1/2 week pt states poor solid, fluid intake. Pt states abd pain with radiation to her back. Mild fever, states weight loss. Dr. Hudson PCP sent her to [facility] and stated that she needed to be admitted. Abdominal Pain Onset Location: reports: generalized abdomen Pain Radiation: reports: back Quality of Pain: reports: aching, burning Severity in ED: reports: moderate, severe Onset/Duration: reports: other (2 weeks ago) Timing: reports: still present Activities at Onset: reports: none Associated Symptoms: reports: back/neck pain, diarrhea, fever/chills, loss of appetite, nausea, vomiting, weakness. denies: cough, diaphoresis, dizziness, sinus congestion/drainage, seizure, shortness of breath Last BM: this evening Dark Stools Present?: reports: none noticed Emesis Description: reports: none Review of Systems - Adult - REVIEW OF SYSTEMS - ADULT Constitutional: reports: fever, weight loss. denies: chills Cardiovascular: denies: chest pain Respiratory: denies: shortness of breath Gastrointestinal: reports: abdominal pain, diarrhea, nausea, poor appetite, vomiting Musculoskeletal: reports: back pain. denies: neck pain Neurological: denies: dizziness/vertigo, headache/migraines Past History - Adult - PAST MEDICAL HISTORY-ADULT Review of Records: reports: Old Records Reviewed, Nursing Assessment Review, Medications Reviewed, Social history reviewed & non-contributory. Physical Exam-General - CONSTITUTIONAL General Appearance: alert, moderate distress - EYES Eyes: PERRL/EOMI, pink conjunctivae - HEAD, EARS, NOSE, MOUTH & THROAT HENMT: TMs normal. negative: moist mucous membranes - NECK Neck: non-tender, full range of motion, supple - RESPIRATORY Respiratory: lungs clear, normal breath sounds - CARDIOVASCULAR Cardiovascular: tachycardia - GASTROINTESTINAL (ABDOMEN) Abdominal Exam: tenderness (Generalized, RUQ pain) - MUSCULOSKELETAL Back Exam: other (low back pain) Extremity: normal range of motion, slow capillary refill - SKIN Integumentary: normal color, warm/dry - PSYCHIATRIC Psych/Mental Status: normal mood/affect, normal thought content, normal thought process, oriented x 3 Progress - PLAN OF CARE/RESULTS Progress/Plan/Lab Results: Vital Signs - 8 hr 08/07/16 18:54 08/07/16 20:36 Temperature 98.6 F Pulse Rate 140 H 123 H Respiratory Rate 20 16 Blood Pressure 135/114 135/95 O2 Sat by Pulse Oximetry 96 100 Laboratory Results - last 24 hr 08/07/16 08/07/16 19:49 20:10 WBC 7.99 RBC 4.17 L Hgb 12.4 Hct 37.0 MCV 88.7 MCH 29.7 MCHC 33.5 RDW Std Deviation 13.5 Plt Count 196 MPV 8.8 Immature Gran % (Auto) 0.4 Neut % (Auto) 75.5 H Lymph % (Auto) 15.8 L [place] % (Auto) 7.3 Eos % (Auto) 0.9 Baso % (Auto) 0.1 Immature Gran # (Auto) 0.03 Neut # (Auto) 6.04 Lymph # (Auto) 1.26 [place] # (Auto) 0.58 Eos # (Auto) 0.07 Baso # (Auto) 0.01 Urine Source CLEAN CATCH Urine Color YELLOW Urine Turbidity CLEAR Urine pH 7.5 Ur Specific [place] 1.010 Urine Protein 70 A Ur Glucose (Stick) NEGATIVE Ur Ketones (Stick) NEGATIVE Urine Blood NEGATIVE Urine Nitrite NEGATIVE Urine Bilirubin NEGATIVE Urobilinogen Dipstick NORMAL Urine Leukocytes SMALL A Urine WBC (Auto) <10 Urine RBC (Auto) <10 U Epithel Cells (Auto) >10 A Urine Bacteria (Auto) NEGATIVE Orders Category Date Time Status NPO Diet 08/07/16 19:25 Active AMYLASE [CHEM] Stat Lab 08/07/16 20:10 Received CBC WITH ELECTRONIC DIFF [HEME] Stat Lab 08/07/16 20:10 Completed COMPREHENSIVE METABOLIC PANEL [CHEM] Stat Lab 08/07/16 20:10 Received LIPASE [CHEM] Stat Lab 08/07/16 20:10 Received URINALYSIS W/POSS RFLX CULT-1 [URINALYSIS] Stat Lab 08/07/16 19:49 Completed URINE CULTURE [RM] Routine Lab 08/07/16 20:08 Received Result Diagrams: 08/13/16 05:30 08/13/16 05:30 - EKG 1 Time of EKG reading by physician:: 22:49 EKG Read and Signed by:: Anton Flores EKG Interpretation (*Must complete 3 of following elements*): Abnormal Rate: 121 Rhythm: Sinus Tachycardia Chuckey: left (deviation) Comments: Abnormal ECG - CONSULTS/PCP/HOSPITALIST Notification #1 *Consult/PCP/Hospitalist*: Time Discussed: 21:54 Reason/Comments: Admit Consult Disposition: Admit (Admit Accepted) Departure - Departure Date of Disposition Decision: 08/07/16 Time of Disposition Decision: 21:57 DIAGNOSIS: Intractable vomiting Qualifiers: Vomiting type: unspecified Nausea presence: with nausea Qualified Code(s): R11.2 - Nausea with vomiting, unspecified Disposition: ADMITTED INPATIENT 09 Certified Medical Emergency: Emergent Condition: Stable - Critical Care Note This patient required my direct & personal management of CC.: No This chart was documented by the indicated scribe, (Fouzia Stephenson Scribe) and accurately reflects the services I performed and decisions made by me, Anton Flores MD, as attested by the provider's signature.
== END 2016-08-13 12:40 | disposition home health service (06) ==
LOC: ED 18:52 → 4N 23:44 → SUATTDRO 23:44
PROVIDERS: ATTEND Internal Medicine